=== PATIENT | male | born 2000 | race Caucasian/White ===

== ENCOUNTER 2021-08-01 15:22 | Inpatient (IN) | payer SELFPAY ==
--- NOTE | 2021-08-01 | CTR_ITS ---
PROCEDURE INFORMATION: Exam: CT Head Without Contrast Exam date and time: 08/01/2021 12:00 AM Age: 20 years old Clinical indication: Injury or trauma; Other: Attempted hanging; Constriction/strangulation TECHNIQUE: Imaging protocol: Computed tomography of the head without contrast. Radiation optimization: All CT scans at this facility use at least one of these dose optimization techniques: automated exposure control; mA and/or kV adjustment per patient size (includes targeted exams where dose is matched to clinical indication); or iterative reconstruction. COMPARISON: No relevant prior studies available. RADIATION DOSE METRICS: Total DLP (mGy-cm): 954.93 FINDINGS: Brain: Normal. No hemorrhage. No cerebral edema. Unremarkable white matter. No mass effect. Cerebral ventricles: No ventriculomegaly. Paranasal sinuses: Visualized sinuses are unremarkable. No fluid levels. Mastoid air cells: Visualized mastoid air cells are well aerated. Bones/joints: Unremarkable. No acute fracture. Soft tissues: Unremarkable. CT/CT head wo con* [id number] IMPRESSION: No acute intracranial abnormality. Radiation Dose CTDIVOL = (mGy): DLP = 954.93 (mGy-cm)
[2021-08-01 15:28] VITALS: BP 158/72; PULSE 77; RESP 16; TEMP 36.9; O2SAT 100; BMI 27.0
--- NOTE | 2021-08-01 15:50 | PC.NURSE ---
At the end of triage pt mother asked patient to show the nurse what he did. Patient showed this nurse his neck and it was noted to have several red altman. Patient States I did it with a rachet strap Patient mother reports that patient stepped off a chair but toes were still touching and he undid the strap. Mother also reports she has witnessed him beating his head on his truck several time in the the last few weeks.
--- NOTE | 2021-08-01 15:57 | CTR_ITS ---
PROCEDURE INFORMATION: Exam: CT Angiography Head With Contrast, Arteriography Exam date and time: 08/01/2021 3:57 PM Age: 20 years old Clinical indication: Injury or trauma; Other: Attempted hanging; Constriction/strangulation TECHNIQUE: Imaging protocol: Computed tomography angiography of the head with contrast. Exam focused on the arteries. 3D rendering (Not supervised by radiologist): MIP and/or 3D reconstructed images were created by the technologist. Radiation optimization: All CT scans at this facility use at least one of these dose optimization techniques: automated exposure control; mA and/or kV adjustment per patient size (includes targeted exams where dose is matched to clinical indication); or iterative reconstruction. Contrast material: OMNI 350; Contrast volume: 95 ml; Contrast route: INTRAVENOUS (IV); COMPARISON: CT head wo con* [id number] 08/01/2021 4:13 PM RADIATION DOSE METRICS: Total DLP (mGy-cm): 2709.32 FINDINGS: ANTERIOR CIRCULATION: Right internal carotid artery: Unremarkable. Intracranial segment is patent with no significant stenosis. No aneurysm. Right middle cerebral artery: Unremarkable. No occlusion or significant stenosis. No aneurysm. Right anterior cerebral artery: Unremarkable. No occlusion or significant stenosis. No aneurysm. Left internal carotid artery: Unremarkable. Intracranial segment is patent with no significant stenosis. No aneurysm. Left middle cerebral artery: Unremarkable. No occlusion or significant stenosis. No aneurysm. Left anterior cerebral artery: Unremarkable. No occlusion or significant stenosis. No aneurysm. POSTERIOR CIRCULATION: Right vertebral artery: Unremarkable. No occlusion or significant stenosis. No aneurysm. Left vertebral artery: Unremarkable. No occlusion or significant stenosis. No aneurysm. Basilar artery: Unremarkable. No occlusion or significant stenosis. No aneurysm. Right posterior cerebral artery: Unremarkable. No occlusion or significant stenosis. No aneurysm. Left posterior cerebral artery: Unremarkable. No occlusion or significant stenosis. No aneurysm. Brain: No definite mass, mass effect, or midline shift. Cerebral ventricles: No ventriculomegaly. Bones/joints: Unremarkable. No acute fracture. Soft tissues: Unremarkable. IMPRESSION: No large vessel stenosis or occlusion. PROCEDURE INFORMATION: Exam: CT Angiography Neck With Contrast Exam date and time: 08/01/2021 3:57 PM Age: 20 years old Clinical indication: Injury or trauma; Other: Attempted hanging; Constriction/strangulation TECHNIQUE: Imaging protocol: Computed tomography angiography of the neck with contrast. 3D rendering (Not supervised by radiologist): MIP and/or 3D reconstructed images were created by the technologist. Radiation optimization: All CT scans at this facility use at least one of these dose optimization techniques: automated exposure control; mA and/or kV adjustment per patient size (includes targeted exams where dose is matched to clinical indication); or iterative reconstruction. Contrast material: OMNI 350; Contrast volume: 95 ml; Contrast route: INTRAVENOUS (IV); COMPARISON: CT head wo con* [id number] 08/01/2021 4:13 PM RADIATION DOSE METRICS: Total DLP (mGy-cm): 2709.32 FINDINGS: Right common carotid artery: No stenosis. No dissection or occlusion. Right internal carotid artery: No stenosis of the extracranial segment. No dissection or occlusion. Right external carotid artery: No occlusion or stenosis of the origin. Left common carotid artery: No stenosis. No dissection or occlusion. Left internal carotid artery: No stenosis of the extracranial segment. No dissection or occlusion. Left external carotid artery: No occlusion or stenosis of the origin. Right vertebral artery: No stenosis. No dissection or occlusion. Left vertebral artery: No stenosis. No dissection or occlusion. Soft tissues: Normal. No significant soft tissue swelling. Bones/joints: No acute fracture. CT/CT angio headneck* [id number] IMPRESSION: No stenosis or occlusion. REFERENCES: NASCET CRITERIA. The degree of internal carotid artery stenosis is based on NASCET criteria. Normal is no stenosis. Mild is less than 50% stenosis. Moderate is 50-69% stenosis. Severe is 70% to 99% stenosis. Total occlusion is no detectable patent lumen. Radiation Dose CTDIVOL = (mGy): DLP = 2709.32~2709.32 (mGy-cm)
--- NOTE | 2021-08-01 16:16 | W.ED.PSYCH ---
HPI - Psych General: Chief Complaint: Psychiatric Symptoms Stated Complaint: SI: MHE/DJ GROSS PCP Time Seen by Provider: 08/01/21 15:52 History of Present Illness: HPI Narrative: Patient is a 20-year-old male with no significant past medical history. He is here after a suicide attempt. Stated that this morning he tried to hang himself with a ratchet strap. He hung for a few minutes and then sat himself down. He stated that for the last 2 weeks he has felt like nobody wants him around and that he does not have any hope. Does not have any specific trauma or issue in his life. Does not have a history of suicide attempts in the past does not have any psychiatric evaluation or medication history denies fevers chills chest pain nausea vomiting diarrhea altered mental status or syncope Review of Systems General: Reports: 10 or more systems reviewed and unremarkable except in HPI and below PFS ED PFSH: Medical History Dog bite of left lower leg Lipoma Suicide attempt Social History Smoking and tobacco status: never smoked Alcohol intake: never Physical Exam Const: COMMON NORMALS: no acute distress, average body habitus, patient oriented x3 and alert ORIENTATION/CONSCIOUSNESS: Yes oriented to person, Yes oriented to place and Yes oriented to time HENMT: COMMON NORMALS: normocephalic, atraumatic and hearing grossly normal bilaterally HEAD & SCALP: normocephalic and atraumatic Neck/C-Spine: COMMON NORMALS: full ROM, no lymphadenopathy and Thyroid normal GENERAL: Yes other (Patient has superficial ligature altman anterior aspect of his neck.) THYROID: Thyroid normal CAROTIDS: Yes normal carotid upstroke, No bruit and No Carotid tenderness present CERVICAL SPINE: Yes cervical ROM normal, No pain with cervical ROM and No Cervical spine tenderness Resp: COMMON NORMALS: normal respiratory effort Cardio: COMMON NORMALS: regular rate, regular rhythm and No murmurs present (Cardio) RATE: regular rate RHYTHM: regular rhythm Extremity: COMMON NORMALS: normal to inspection and full ROM Neuro: COMMON NORMALS: patient oriented x3, CN's II-XII intact bilaterally and moves all extremities SENSORIUM/ORIENTATION: Yes alert, Yes oriented to person, Yes oriented to place, Yes oriented to time and No Orientation impaired Psych: COMMON NORMALS: mental status grossly normal, cooperative, normal affect and speech normal; negative for Normal thought process present and negative for denies suicidal ideation APPEARANCE: Yes grossly normal ATTITUDE: Yes calm, Yes evasive, Yes Guarded attititude/behavior present, No Belligerent attititude/behavior present, No agitated, No aggressive and No hostile ACTIVITY/MOTOR BEHAVIOR: Yes appropriate eye contact and Yes Avoids eye contact (attititude/behavior) SPEECH: Yes normal speech MOOD & AFFECT: Yes depressed mood, Yes sad and Yes tearful THOUGHT PROCESS: abnormal THOUGHT CONTENT: Yes Suicidality present and No Homicidality present ATTENTION/CONCENTRATION: Yes attention grossly intact and Yes concentration grossly intact MEMORY/COGNITION: Yes memory grossly intact and Yes cognition grossly intact INSIGHT: Poor insight present (Psych) JUDGEMENT: Poor judgement present (Psych) Course ED course: Patient CTA of neck was normal. Psychiatric lab work-up unremarkable. Discussed case with psychiatric hospitalist who agrees to admit Vital Signs: Vital signs: Vital Signs Temperature 98.4 F 08/01/21 15:28 Pulse Rate 77 08/01/21 15:28 Respiratory Rate 16 08/01/21 15:28 Blood Pressure 158/72 08/01/21 15:28 Pulse Oximetry 100 08/01/21 15:28 MDM - Psych MDM Narrative: Medical decision making narrative: Patient is a 20-year-old male with no previous mental history who is here with a suicide attempt. Attempt from hanging. Patient will not be allowed to leave AGAINST MEDICAL ADVICE. Will place a 96-hour hold on him. I have let the patient know that this is the case. Will get CTA of the neck to assess for any damage from the hanging attempt. We will also get psych psychiatric work-up labs then discussed case with psychiatrist systems applications programming lead Lab Data: Labs: Lab Results 08/01/21 08/01/21 08/01/21 Range/Units 16:18 16:18 16:45 WBC 11.6 (4.5-13.0) 10^3/ uL RBC 5.04 (4.1-5.3) 10^6/u L Hgb 15.2 (11.7-16.6) g/dL Hct 44.7 (42.0-52.0) % MCV 88.7 (80-94) fl MCH 30.2 (28.0-34.0) pg MCHC 34.0 (30.0-36.0) g/dL RDW 12.1 (12.1-15.1) % Plt Count 251 (130-400) 10^3/c mm MPV 12.2 H (7.4-10.4) fL Neut % (Auto) 60.7 % Lymph % (Auto) 27.4 % Tompkins % (Auto) 9.0 % Eos % (Auto) 2.3 % Baso % (Auto) 0.3 % Neut # (Auto) 7.05 (1.8-8.0) 10^3/u L Lymph # (Auto) 3.2 (1.5-6.5) 10^3/u L Tompkins # (Auto) 1.1 H (0.2-0.9) 10^3/u L Eos # (Auto) 0.3 (0.0-0.8) 10^3/u L Baso # (Auto) 0.0 (0.0-0.1) 10^3/u L Nucleated RBC % (a uto) 0 % Nucleated RBCs # 0.0 /100WBC Sodium 141 (136-145) mmol/L Potassium 3.6 (3.5-5.1) mmol/L Chloride 104 (98-107) mmol/L Carbon Dioxide 26 (22-29) mmol/L Anion Gap 14.6 (5-19) BUN 10 (6-20) mg/dL Creatinine 0.8 (0.7-1.2) mg/dL GFR Calculation 124.5 (90-130) mL/min Glucose 88 (65-115) mg/dL Calculated Osmolal ity 290 (285-295) mOsm/k g Calcium 8.9 (8.5-10.5) mg/dL Total Bilirubin 0.6 (0.15-1.2) mg/dL AST 19 (0-40) U/L ALT 18 (0-41) U/L Alkaline Phosphata se 67 (40-130) IU/L Total Protein 7.0 (6.6-8.7) g/dL Albumin 4.5 (3.5-5.2) g/dL Globulin 2.5 (1.3-4.6) g/dL Urine Color Yellow (Yellow) Urine Appearance Clear (CLEAR) Urine pH 6.5 (5-7) Ur Specific Gravit y 1.010 (1.005-1.030) Urine Protein Neg (Negative) Urine Glucose (UA) Norm (Normal) Urine Ketones Negative (Negative) Urine Blood Neg (Negative) Urine Nitrate Negative (Negative) Urine Bilirubin Neg (Negative) Urine Urobilinogen Norm (Negative) mg/dL Ur Leukocyte Ev ase Negative (Negative) Salicylates 0.8 L (3-10) mg/dL Acetaminophen < 5.0 L (10-30) ug/mL EKG Data^: EKG 1: Attestation: I personally reviewed and interpreted this EKG as follows: EKG interpretation date: 08/01/21 EKG interpretation time: 16:51 Other EKG comments: Normal sinus rhythm rate 91 Upson normal good R wave progression no evidence of ischemia or infarct Discharge Plan Discharge Prescriptions: No Action ibuprofen 200 mg Tablet 200 - 400 mg PO Q6H PRN (Reason: Pain) RF: 0 Coding Level of Care Code ED Proctologist for Chg Fwd Exam Comprehensive
[2021-08-01] MEDS: iohexol 350 mg/mL 100 mL Btl IV (16:19)
[2021-08-01 16:28] LABS: Basophils % 0.3 %; Eosinophils # 0.3 10^3/uL (0.0-0.8); Eosinophils % 2.3 %; Hematocrit 44.7 % (42.0-52.0); Hemoglobin 15.2 g/dL (11.7-16.6); Lymphocytes # 3.2 10^3/uL (1.5-6.5); Lymphocytes % 27.4 %; Mean Corpuscular Hemoglobin 30.2 pg (28.0-34.0); Mean Corpuscular Volume 88.7 fl (80-94); Mean Platelet Volume 12.2 fL (7.4-10.4); Monocytes # 1.1 10^3/uL (0.2-0.9); Neutrophils # 7.05 10^3/uL (1.8-8.0); Neutrophils % 60.7 %; Nucleated Red Blood Cells % 0 %; Platelet Count 251 10^3/cmm (130-400); Red Blood Count 5.04 10^6/uL (4.1-5.3); Red Cell Distribution Width 12.1 % (12.1-15.1); White Blood Count 11.6 10^3/uL (4.5-13.0)
[2021-08-01 16:42] LABS: Alanine Aminotransferase 18 U/L (0-41); Albumin Level 4.5 g/dL (3.5-5.2); Alkaline Phosphatase 67 IU/L (40-130); Anion Gap 14.6 (5-19); Aspartate Amino Transferase 19 U/L (0-40); Blood Urea Nitrogen 10 mg/dL (6-20); Calcium 8.9 mg/dL (8.5-10.5); Carbon Dioxide 26 mmol/L (22-29); Chloride 104 mmol/L (98-107); Globulin 2.5 g/dL (1.3-4.6); Glomerular Filtration Rate 124.5 mL/min (90-130); Glucose 88 mg/dL (65-115); Osmolality Calculated 290 mOsm/kg (285-295); Potassium 3.6 mmol/L (3.5-5.1); Salicylate 0.8 mg/dL (3-10); Sodium 141 mmol/L (136-145); Total Bilirubin 0.6 mg/dL (0.15-1.2)
[2021-08-01 16:44] LABS: Acetaminophen < 5.0 ug/mL (10-30)
[2021-08-01 17:38] LABS: Add Urine Microscopic? NO; Charge for UA Resulting for Rev
[2021-08-01 17:46] LABS: Bilirubin Urine Neg (Negative); Blood Urine Neg (Negative); Glucose Urine UA Norm (Normal); Ketones Urine Negative (Negative); Leukocyte Esterase Urine Negative (Negative); Nitrate Urine Negative (Negative); Protein Urine Neg (Negative); Urine Appearance Clear (CLEAR); Urine Color Yellow (Yellow); Urobilinogen Urine Norm (Negative); pH Urine 6.5 (5-7)
[2021-08-01 17:55] LABS: Amphetamines Screen Urine Negative (Negative); Barbiturates Screen Urine Negative (Negative); Benzodiazepines Screen Urine Negative (Negative); Cocaine Screen Urine Negative (Negative); Opiate Screen Urine Negative (Negative); PCP Screen Urine Negative (Negative); THC Screen Urine Positive (Negative)
[2021-08-01 20:59] VITALS: BP 156/80; PULSE 79; RESP 18; TEMP 37.4; O2SAT 98
[2021-08-02 05:22] VITALS: BP 134/67; PULSE 60; RESP 16; TEMP 37.1; O2SAT 97
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
[2021-08-02 14:00] VITALS: BP 152/79; PULSE 82; RESP 16; TEMP 36.8; O2SAT 99
[2021-08-02] MEDS: nicotine 2 mg Gum BUCCAL (19:28)
[2021-08-03] MEDS: buPROPion XL (24 HR) 150 mg Tablet PO (14:00)
--- NOTE | 2021-08-03 16:34 | PM.NPN ---
Subjective NPU Subjective: Interval history: Patient presents today reporting that he feels really bad about what happened. We met with his mother who also showed great concern over his behavior and he once again acknowledged that at the very least he tied the noose tightly around his neck and had slept enough that he created the ligature altman. He continues apparently within the went on to tie the rope to something else however that was not the story reported at admission. Either way it was significant active furtherance creating great concern about his safety and discharge. He saying all the right things about what he will do next. Not happy about not being discharged today. Mental Status Exam MSE Comments: This is an overweight versus obese, white male, with hospital scrubs on, and limited grooming and adequate eye contact. No abnormal movements, except for mild psychomotor retardation. Resolving ligature altman Cooperative with exam in mild distress. Speech was slightlydecreased rate and normal volume. Mood described as missing my kid; affect slightly subdued. Thought process, organized. Thought content: patient denied any suicidal or homicidal ideation, there were no delusions reported or noted, patient denied any auditory or visual hallucinations. Attention, concentration, and memory appear intact but none were formally tested. He is alert and oriented times three. Insight and judgment appear fair. Impulse control is impaired. Vitals/I&O/Wt Last Vital Signs Temp 98.2 F 08/02/21 14:00 Pulse 82 08/02/21 14:00 Resp 16 08/02/21 14:00 BP 152/79 08/02/21 14:00 Pulse Ox 99 08/02/21 14:00 Data NPU : 08/01/21 16:18 08/01/21 16:18 A&P Additional A&P Information (1) Suicide attempt: (2) Lipoma: (3) Dog bite of left lower leg: (4) Depression: (5) Partner relational problem: This is a 20 year old, white male, with some history of reported depression, with a previous medication trial and some limited drug use reported, with recent conflict with his significant other, with a suicide gesture versus attempt, of unclear severity but concerning severity. 1. Continue current medication, except: Start Wellbutrin XL 150 mg po qam. 2. Encourage individual, group, and milieu therapy. 3. Continue q-15 minute checks for safety. 4. Encourage sober living treatment at the highest level of care to which the patient is willing to commit. Involuntary Hold Information 96 Hour Hold: 96 Hour Involuntary Admission: Yes 96 Hour Hold Ending Date: 08/07/21 96 Hour Hold Ending Time: 15:55 Attestations NPU Medical Necessity Statement*: Inpatient hospitalization is medically necessary and the clinically appropriate intervention, at this time. We will monitor medications and make changes as indicated. Likely length of stay is 2-4 days. Coding Level of Care Code Acute Supervisor Jewelry Department for [facility]
[2021-08-03] MEDS: hyDROXYzine 25 mg Capsule 50 MG PO (20:48)
[2021-08-03] MEDS: trazodone 50 mg Tablet PO (20:48)
[2021-08-03 23:06] VITALS: BP 147/88; PULSE 77; RESP 18; TEMP 36.8; O2SAT 97
[2021-08-03 23:07] VITALS: BP 147/88; PULSE 77; RESP 18; TEMP 36.8; O2SAT 97
--- NOTE | 2021-08-04 02:45 | PC.NURSE ---
PRN 2048 50mg vistaril administered for anxiety, 50mg Trazodone for sleep aid. Will continue to monitor.
[2021-08-04 06:00] VITALS: BP 154/82; PULSE 80; RESP 16; TEMP 36.8; O2SAT 98
[2021-08-04] MEDS: buPROPion XL (24 HR) 150 mg Tablet PO (08:03)
[2021-08-04 14:00] VITALS: BP 134/78; PULSE 75; RESP 17; TEMP 36.9; O2SAT 99
--- NOTE | 2021-08-04 17:46 | P.PN_ITS ---
Subjective NPU Subjective: Interval history: Patient presents today seeming much more relaxed and seeming to do better on the unit. Irritability about being here seems to have diminished and he is hopeful for discharge sooner rather than later. He endorses that the medication is effective and he feels significantly better. He was able to reach out to his child and continues to endorse a plan to work with his mother as an intermediary to avoid the drama that has come with his interactions with his significant other. We discussed the likelihood of discharge in the next 48 hours. Mental Status Exam MSE Comments: This is an overweight versus obese, white male, with hospital scrubs on, and limited grooming and adequate eye contact. No abnormal movements, except for resolving mild psychomotor retardation. Resolving ligature altman. Cooperative with exam in no acute distress. Speech was more normal rate and normal volume. Mood described as better; affect congruent. Thought process, organized. Thought content: patient denied any suicidal or homicidal ideation, there were no delusions reported or noted, patient denied any auditory or visual hallucinations. Attention, concentration, and memory appear intact but none were formally tested. He is alert and oriented times three. Insight and judgment appear fair. Impulse control is limited. Vitals/I&O/Wt Last Vital Signs Temp 97.9 F 08/04/21 22:00 Pulse 91 08/04/21 22:00 Resp 18 08/04/21 22:00 BP 152/88 08/04/21 22:00 Pulse Ox 97 08/04/21 22:00 Weight last 48 hrs Weight 92.986 kg Data NPU : 08/01/21 16:18 08/01/21 16:18 A&P Additional A&P Information (1) Suicide attempt: (2) Lipoma: (3) Dog bite of left lower leg: (4) Depression: (5) Partner relational problem: This is a 20 year old, white male, with some history of reported depression, with a previous medication trial and some limited drug use reported, with recent conflict with his significant other, with a suicide gesture versus attempt, of unclear severity but concerning severity. 1. Continue current medication. 2. Encourage individual, group, and milieu therapy. 3. Continue q-15 minute checks for safety. 4. Encourage sober living treatment at the highest level of care to which the patient is willing to commit. Involuntary Hold Information 96 Hour Hold: 96 Hour Involuntary Admission: Yes 96 Hour Hold Ending Date: 08/07/21 96 Hour Hold Ending Time: 15:55 Attestations NPU Medical Necessity Statement*: Inpatient hospitalization is medically necessary and the clinically appropriate intervention, at this time. We will monitor medications and make changes as indicated. Likely length of stay is 1-3 days. Coding Level of Care Code Acute Surveyor Instrument Assistant for Luis Alfredo Murray
[2021-08-04] MEDS: hyDROXYzine 25 mg Capsule 50 MG PO (20:59)
[2021-08-04] MEDS: trazodone 50 mg Tablet PO (20:59)
[2021-08-04] MEDS: nicotine 2 mg Gum BUCCAL (21:21)
[2021-08-04 22:00] VITALS: BP 152/88; PULSE 91; RESP 18; TEMP 36.6; O2SAT 97
--- NOTE | 2021-08-05 01:05 | PC.NURSE ---
PRN 2059 Administered Vistaril 50mg for anxiety and Trazodone 50mg for a sleeping aid. Will continue to monitor.
--- NOTE | 2021-08-05 01:11 | PC.NURSE ---
room change Nursing staff moved Thang to room 125 on the north side, his roommate was saying some disturbing comments. Thang thanked staff for the move, now in a private room with a view that he enjoys.
[2021-08-05 05:17] VITALS: BMI 27.0
[2021-08-05 06:00] VITALS: BP 153/84; PULSE 93; RESP 17; TEMP 36.6; O2SAT 100
[2021-08-05] MEDS: buPROPion XL (24 HR) 150 mg Tablet PO (08:44)
[2021-08-05 12:54] VITALS: BP 155/74; PULSE 81; RESP 17; TEMP 37.6; O2SAT 97
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
[2021-08-05 15:47] VITALS: BP 155/74; PULSE 81; RESP 17; TEMP 37.6; O2SAT 97
== END 2021-08-05 16:00 | disposition home or self-care (01) | DRG 914 ==
LOC: ER 17:53 → NP 18:27
PROVIDERS: Family Medicine; Admitting Provider Psychiatry & Neurology Psychiatry; Emergency Provider Family Medicine; PCP Nurse Practitioner Family; Visit Provider Psychiatry & Neurology Psychiatry
DX: T14.91XA Suicide attempt, initial encounter (principal); X83.8XXA Intentional self-harm by other specified means, initial encounter; F32.9 Major depressive disorder, single episode, unspecified; F17.210 Nicotine dependence, cigarettes, uncomplicated; Z63.0 Problems in relationship with spouse or partner
CPT/HCPCS: 70450; 70496; 70498; 80053; 80306; 80307; 81003; 85025; 97165; 99285; Q9967

== ENCOUNTER 2021-08-08 13:18 | Outpatient (CLI) | payer BC, MEDICAID, SELFPAY ==
--- NOTE | 2021-08-08 13:30 | US_ITS ---
WS: [id number] INDICATION: Soft tissue nodules lower back TECHNIQUE: Ultrasound soft tissue area of concern. FINDINGS: Ultrasound soft tissue right and left of spine in the lower back. Normal underlying subcuta neous soft tissue. Normal underlying strap muscles. Well-circumscribed slightly echogenic soft tissue compatible with incidental lipomas measuring 1.9 x 0.7 x 1.6 cm on the right and 1.4 x 0.9 x 1.2 cm on the left. US/US soft tissue/extremity 35537 IMPRESSION: Small incidental lipomas in the area of concern. No suspicious find ings.
== END 2021-08-08 13:19 | disposition home or self-care (01) ==
LOC: US 13:20
PROVIDERS: PCP Nurse Practitioner Family; Visit Provider Nurse Practitioner Family
DX: D17.9 Benign lipomatous neoplasm, unspecified (principal)
CPT/HCPCS: 76882

== ENCOUNTER 2023-04-15 01:57 | Emergency (ER) | payer BC, MEDICAID, SELFPAY ==
[2023-04-15 02:03] VITALS: BP 171/85; PULSE 81; RESP 16; TEMP 36.6; O2SAT 97; BMI 29.8
[2023-04-15 02:06] VITALS: O2SAT 94
[2023-04-15 02:08] VITALS: PULSE 90; RESP 16; O2SAT 95
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
[2023-04-15] MEDS: acetaminophen 500 mg Tablet 1000 MG PO (02:44)
[2023-04-15] MEDS: meclizine 25 mg tablet PO (02:44)
[2023-04-15 02:49] VITALS: BP 173/111; PULSE 76; RESP 18; O2SAT 96
--- NOTE | 2023-04-18 13:41 | DCPLANNER ---
ultrasound manager was triggered to call patient due to no primary care physician - patient sees Nicky Dubon.
== END 2023-04-15 02:54 | disposition home or self-care (01) ==
PROVIDERS: Emergency Provider Emergency Medicine; PCP Nurse Practitioner
DX: S01.112A Laceration without foreign body of left eyelid and periocular area, initial encounter (principal); W22.8XXA Striking against or struck by other objects, initial encounter
CPT/HCPCS: 12011; 99283; J8597